=== PATIENT | female | born 1980 | race African-American/Black ===

== ENCOUNTER 2017-06-14 12:00 | Emergency (ER) | payer OTHER ==
[2017-06-14] MEDS ORDERED: LISINOPRIL5 M1 PO (14:21)
[2017-06-14 14:31] LABS: ABSOLUTE BASOPHIL COUNT 0.1 /CUMM (0.0-0.2); ABSOLUTE EOSINOPHIL COUNT 0.1 /CUMM (0.0-0.7); ABSOLUTE GRANULOCYTE CT 3.6 /CUMM (1.4-6.5); ABSOLUTE LYMPH COUNT 2.6 /CUMM (1.2-3.4); ABSOLUTE MONOCYTE COUNT 0.7 /CUMM (0.10-0.60); BASOPHIL % 1.1 % (0.0-2.0); EOSINOPHIL % 1.7 % (0-5); GRANULOCYTE % 51.1 % (42.2-75.2); HEMATOCRIT 35.5 % (37-47); MEAN CORPUSCULAR HGB 27.6 PG (27.0-31.0); MEAN CORPUSCULAR HGB CONC 33.5 G/DL (33.0-37.0); MEAN CORPUSCULAR VOLUME 82.3 FL (81.0-99.0); MEAN PLATELET VOLUME 8.8 FL (7.4-10.4); PLATELET COUNT 363 /CUMM (130-400); RBC DISTRIBUTION WIDTH 15.6 % (11.5-14.5); RED BLOOD CELL CT 4.31 /CUMM (4.20-5.40); WHITE BLOOD CELL COUNT 7.1 /CUMM (4.8-10.8)
--- NOTE | 2017-06-14 15:31 | ED GENERAL ADULT ---
History of Present Illness General Chief Complaint: General Adult Stated Complaint: ELAVATED BP X 24 HRS Source: patient Exam Limitations: no limitations Allergies Coded Allergies: peanut (Severe, SWELLING, HIVES 06/14/17) Reconcile Medications Lisinopril 5 MG TABLET 1 TAB PO DAILY HEART (Reported) Triage Note: PT TO ED FOR C/C OF HIGH BLOOD PRESSURE LATELY, SUBJECTIVE THIS MORNING AT 150/101. 146/90 IN TRIAGE. ALSO REPORTS CONCERNS IN BOWEL CHANGES. OVER THE LAST FEW MONTHS HAS HAD DIARRHEA TYPE STOOL, VARYING FROM "BLACK TO WHITE." WITH ABD CRAMPING. LAST EPISODE LAST NIGHT. +N, -V. Triage Nurses Notes Reviewed? yes Onset: Abrupt Timing: recent history Injury Environment: home No Modifying Factors: none : No Patient currently breastfeeds: No HPI: 37-year-old female comes into emergency room with multiple complaints. Her first primary complaint is that she has been experiencing a headache is been going on for the past day. She reports that her blood pressure has been spiking at home. She denies any visual changes or vision loss. She denies any chest pain or shortness of breath. She reports that she's had some intermittent loose stools for weeks. They range from black 2 white stools. This is not typical for her. She gets some associated cramping at times with bowel movements. (Jose Marquez) Vital Signs & Intake/Output Vital Signs & Intake/Output Vital Signs Date Time Temp Pulse Resp B/P B/P Pulse O2 O2 Flow FiO2 Mean Ox Delivery Rate 06/14 1425 97.2 69 20 160/98 100 Room Air 06/14 1219 96.8 75 15 146/90 100 Room Air Room Air ED Intake and Output 06/15 0000 06/14 1200 Intake Total 0 Output Total Balance 0 Intake, Oral 0 (John De La Paz) Past History Travel History Traveled to [place] past 21 day No Medical History Any Pertinent Medical History? see below for history Neurological: NONE EENT: NONE Cardiovascular: hypertension Respiratory: NONE Gastrointestinal: NONE Hepatic: NONE Renal: NONE Musculoskeletal: NONE Psychiatric: NONE Endocrine: NONE Blood Disorders: NONE Cancer(s): NONE DATA MANAGEMENT ASSOCIATE/Reproductive: NONE Surgical History Surgical History: non-contributory Psychosocial History What is your primary language Andorran Tobacco Use: Never used ETOH Use: denies use Illicit Drug Use: denies illicit drug use Family History Hx Contributory? No (Jose Marquez) Review of Systems Review of Systems Constitutional: Reports: no symptoms. EENTM: Reports: no symptoms. Respiratory: Reports: no symptoms. Cardiovascular: Reports: no symptoms. GI: Reports: see HPI. Genitourinary: Reports: no symptoms. Musculoskeletal: Reports: no symptoms. Skin: Reports: no symptoms. Neurological/Psychological: Reports: see HPI. Hematologic/Endocrine: Reports: no symptoms. Immunologic/Allergic: Reports: no symptoms. All Other Systems: Reviewed and Negative (Jose Marquez) Physical Exam Physical Exam General Appearance: well developed/nourished, no apparent distress, alert, awake Head: atraumatic, normal appearance Eyes: Bilateral: normal appearance, PERRL, EOMI. Ears, Nose, Throat: normal ENT inspection, hearing grossly normal Neck: normal inspection Respiratory: normal breath sounds, no respiratory distress Cardiovascular: regular rate/rhythm Gastrointestinal: soft, non-tender Rectal: heme negative stool, no black stool appreciated Back: normal inspection Extremities: normal inspection Neurologic/Psych: no motor/sensory deficits, awake, alert, oriented x 3, normal gait, normal mood/affect Skin: intact, normal color Core Measures ACS in differential dx? No CVA/TIA Diagnosis: Yes Sepsis Present: No Sepsis Focused Exam Completed? No (Jose Marquez) Progress Differential Diagnoses I considered the following diagnoses in my evaluation of the patient: Hypertensive urgency, CVA, intracranial bleed, upper GI bleed, diverticulosis, hemorrhoids, IBS D, inflammatory bowel disease, colon CA, Diagnostic Imaging: Viewed by Me: CT Scan. Discussed w/RAD: CT Scan. Initial ED EKG: normal sinus rhythm, rate (70) Hand-Off Endorsed To: John De La Paz Endorsed Time: 1557 (Jose Marquez) Plan of Care: Orders Procedure Date/time Status Add-on Test (ER Only) 06/14 1506 Active HUMAN BETA HCG SCREEN 06/14 1423 Complete URINE 06/14 1412 Complete URINALYSIS 06/14 1412 Complete TROPONIN LEVEL 06/14 1412 Complete COMPREHENSIVE METABOLIC PANEL 06/14 1412 Complete CBC WITHOUT DIFFERENTIAL 06/14 1412 Complete EKG 06/14 1412 Active Laboratory Tests 06/14/17 1546: Urine Color YEL, Urine Clarity CLEAR, Urine pH 7.0, Ur Specific [place] 1.020, Urine Protein TRACE H, Urine Ketones NEG, Urine Nitrite NEG, Urine Bilirubin NEG, Urine Urobilinogen 0.2, Ur Leukocyte Esterase NEG, Ur Microscopic SEDIMENT EXAMINED, Urine WBC 5-10 H, Ur Epithelial Cells MANY H, Urine Bacteria MOD H, Urine Hemoglobin NEG, Urine Glucose NEG, Urine Test NEGATIVE 06/14/17 1423: Anion Gap 13, Estimated GFR > 60, BUN/Creatinine Ratio 16.3, Glucose 91, Calcium 9.5, Total Bilirubin 0.4, AST 19, ALT 28, Alkaline Phosphatase 67, Troponin I < 0.01, Total Protein 8.0, Albumin 4.5, Globulin 3.5, Albumin/Globulin Ratio 1.3, Total Beta HCG NEGATIVE, CBC w Diff NO MAN DIFF REQ, RBC 4.31, MCV 82.3, MCH 27.6, MCHC 33.5, RDW 15.6 H, MPV 8.8, Gran % 51.1, Lymphocytes % 36.4, Monocytes % 9.7 H, Eosinophils % 1.7, Basophils % 1.1, Absolute Granulocytes 3.6, Absolute Lymphocytes 2.6, Absolute Monocytes 0.7 H, Absolute Eosinophils 0.1, Absolute Basophils 0.1 1615-I discussed with the patient her CAT scan and lab work. I discussed the need for close follow-up with her primary care physician, as well as GI regarding her abnormal stools she is guaiac-negative here copy of her CAT scan of blood work will be provided to her. The patient is resting in no acute distress denies any complaints at this time. The case was discussed with Dr. ramos who agrees with plan Diagnostic Imaging: Viewed by Me: CT Scan. Discussed w/RAD: CT Scan. Radiology Impression: PATIENT: NAS LAUREN PRESENT AGE: 37 PATIENT ACCOUNT NO: [id number] : 79 LOCATION: [facility] ORDERING PHYSICIAN: Jose ALLEN SERVICE DATE: 06/14/17 EXAM TYPE: CAT - CT HEAD WO IV CONTRAST EXAMINATION: CT HEAD WITHOUT CONTRAST CLINICAL INFORMATION: Headache. COMPARISON: None. TECHNIQUE: Contiguous axial imaging was performed from the skull base to vertex without intravenous administration of contrast. DLP: 618.5 mGy-cm FINDINGS: There is no evidence of acute intracranial hemorrhage or territorial infarction. No abnormal mass effect or midline shift is seen. Rodriguez to white matter differentiation is well preserved. No extra-axial fluid collections are identified. The ventricles are normal in size. There is no abnormal attenuation within the brain parenchyma. There are no acute osseous findings. There are mild bilateral temporomandibular joint arthropathic changes. The mastoid air cells and visualized portions of the paranasal sinuses are well aerated. IMPRESSION: 1. There are no acute bleeds or territorial infarcts. No masses or fluid collections are demonstrated. 2. There is no active paranasal sinus disease. DICTATED BY: Esau Banuelos MD DATE/TIME DICTATED:06/14/171557 HOT METAL MIXER OPERATOR:MATTHEW DATE/TIME TRANSCRIBED:06/14/171557 CONFIDENTIAL, DO NOT COPY WITHOUT APPROPRIATE AUTHORIZATION. <Electronically signed in Other Vendor System> SIGNED BY: Esau Banuelos MD 06/14/17 1604 (John De La Paz) Departure Departure Disposition: HOME OR SELF CARE Condition: Stable Clinical Impression Primary Impression: Hypertension Secondary Impressions: Loose stools Departure Forms: Customer Survey General Discharge Information (Jose Marquez) Departure Time of Disposition: 1615 Referrals: Zahra PERALTA,Chris Lowe MD,Jacqueline Campbell (PCP/Family) Additional Instructions: Follow-up with your primary care doctor for blood pressure management. Return if any concerns worsening symptoms. Follow-up with credit product analyst Dr. Sweeney Please go over all results of today's visit with your primary care doctor. Contact your primary care doctor to let them know you were here in the emergency room. There may be nonspecific findings which may not be related to your visit today here in the emergency room but may require further evaluation and chronic monitoring by your primary care doctor. If you had a laceration today the chance of foreign body always remains. You should follow-up with your primary care doctor for recheck in 3-5 days for a wound check. If you had an x-ray done there is a chance that a fracture could have been missed on initial read and you should follow-up with your primary care doctor for repeat x-rays if symptoms persist. If your blood pressure was elevated here in the emergency room please have rechecked by [facility] primary care doctor within the next 48. If you were prescribed a narcotic here in the emergency room or any type of controlled substances you're not allowed to drive while taking this medication or operate any type of heavy machinery. Narcotics can make you feel lightheaded dizziness nausea and can cause constipation. You may need to filler picker a stool softener. Thank you for choosing [facility] emergency room. Please return to the emergency room immediately if you have any other concerns worsening of symptoms. (Kenia ALLEN,John) PA/TIER OVER Co-Sign Statement Statement: ED Attending supervision documentation- [] I saw and evaluated the patient. I have also reviewed all the pertinent lab results and diagnostic results. I agree with the findings and the plan of care as documented in the PA's/TIER OVER's documentation. [X] I have reviewed the ED Record and agree with the PA's/TIER OVER's documentation. [] Additions or exceptions (if any) to the PAs/TIER OVER's note and plan are summarized below: [] (Mundo CATHERINE,Adarsh Teague) Critical Care Note Critical Care Note Critical Care Time: non-applicable (José Luis ALLEN,Jose)
--- NOTE | 2017-06-14 16:04 | CT SCAN REPORT ---
EXAMINATION: CT HEAD WITHOUT CONTRAST CLINICAL INFORMATION: Headache. COMPARISON: None. TECHNIQUE: Contiguous axial imaging was performed from the skull base to vertex without intravenous administration of contrast. DLP: 618.5 mGy-cm FINDINGS: There is no evidence of acute intracranial hemorrhage or territorial infarction. No abnormal mass effect or midline shift is seen. Rodriguez to white matter differentiation is well preserved. No extra-axial fluid collections are identified. The ventricles are normal in size. There is no abnormal attenuation within the brain parenchyma. There are no acute osseous findings. There are mild bilateral temporomandibular joint arthropathic changes. The mastoid air cells and visualized portions of the paranasal sinuses are well aerated. IMPRESSION: 1. There are no acute bleeds or territorial infarcts. No masses or fluid collections are demonstrated. 2. There is no active paranasal sinus disease.
== END 2017-06-14 16:21 ==
LOC: ERH 12:00
PROVIDERS: Physician Assistant Medical
DX: I10 Essential (primary) hypertension (principal); R19.7 Diarrhea, unspecified; R51 Headache
CPT/HCPCS: 81001; 81025; 93005; 93010